=== PATIENT | male | born 1960 | race African-American/Black ===

== ENCOUNTER 2018-02-23 18:53 | Emergency (ER) | payer MEDICARE, OTHER | END 2018-02-24 05:30 | disposition home or self-care (01) | LOC: E/R 02-24 05:30 | DX: F10.120 Alcohol abuse with intoxication, uncomplicated (principal); R42 Dizziness and giddiness; R40.2112 Coma scale, eyes open, never, at arrival to emergency department; R40.2342 Coma scale, best motor response, flexion withdrawal, at arrival to emergency department; R40.2212 Coma scale, best verbal response, none, at arrival to emergency department | CPT/HCPCS: 70450; 99284-25 ==